=== PATIENT | male | born 1965 | race Caucasian/White ===

== ENCOUNTER 2018-07-20 12:39 | Emergency (ER) | payer BC ==
[2018-07-20] MEDS: KETOROLAC 30 MG INJ IM (13:54)
== END 2018-07-20 16:16 | disposition left against medical advice (07) ==
LOC: FTE 12:39
DX: M79.604 Pain in right leg (principal); E11.9 Type 2 diabetes mellitus without complications; Z87.891 Personal history of nicotine dependence
CPT/HCPCS: 73562; 93971; 96372; 99284-25